=== PATIENT | female | born 1960 | race American Indian/Alaskan Native ===

== ENCOUNTER 2017-06-26 17:29 | Emergency (ER) | payer MEDICAID, OTHER ==
[2017-06-26 17:53] VITALS: BMI 24.2
[2017-06-26 17:58] VITALS: RESP 20
--- NOTE | 2017-06-26 18:32 | C.PDOC ---
History Of Present Illness 57F hx of SS anemia c/o pain in her left upper chest rad around to side of chest and behind shoulder for the last "two to four hours." worse w deep breathing. she has not had this pain before and says it feels different than sickle cell pain. she denies any cough or fever. no dvt/pe risk factors. Time Seen by Provider: 06/26/17 18:22 Chief Complaint (Nursing): Chest Pain Past Medical History Vital Signs: Last Vital Signs Temp 97.4 F L 06/26/17 17:52 Pulse 74 06/26/17 17:52 Resp 20 06/26/17 17:52 BP 138/94 H 06/26/17 17:52 Pulse Ox 100 06/26/17 18:41 - Medical History PMH: Anemia (sickle cell), Arthritis, Asthma Family History: States: Other Other Family History: nc - Social History Hx Tobacco Use: No Hx Alcohol Use: Yes Hx Substance Use: No - Immunization History Hx Tetanus Toxoid Vaccination: No (6yrs ago) Hx Influenza Vaccination: No Hx Pneumococcal Vaccination: No Review Of Systems Except As Marked, All Systems Reviewed And Found Negative. Constitutional: Negative for: Fever, Chills, Weakness Eyes: Negative for: Vision Change Cardiovascular: Positive for: Chest Pain. Negative for: Edema Respiratory: Negative for: Cough, Shortness of Breath, Hemoptysis, Sputum Gastrointestinal: Negative for: Nausea, Vomiting, Abdominal Pain Musculoskeletal: Positive for: Shoulder Pain Neurological: Negative for: Weakness, Numbness, Headache Physical Exam - Physical Exam Appears: Well, Non-toxic, No Acute Distress Skin: Warm, Dry Head: Atraumatic Eye(s): bilateral: PERRL Nose: No Epistaxis Oral Mucosa: Moist Chest: Tenderness (left anterior inferior to clavicle, also left lateral chest wall, posterior shoulder) Cardiovascular: Rhythm Regular, No Edema Respiratory: No Decreased Breath Sounds, No Accessory Muscle Use, No Rales, No Rhonchi, No Stridor, No Wheezing Gastrointestinal/Abdominal: Soft, No Tenderness Extremity: No Calf Tenderness, No Swelling Pulses: Left Radial: Normal, Right Radial: Normal Neurological/Psych: Oriented x3, Normal Motor, Normal Sensation, Other (no focal deficits) ED Course And Treatment O2 Sat by Pulse Oximetry: 100 Disposition - Disposition Disposition Time: 19:00 Condition: STABLE Forms: Perfect [employer] (Urdu) - Clinical Impression Clinical Impression: Chest pain Physician Patient Turnover Patient Signed Over To: Stephane Quinones Handoff Comments: pending wrkup
[2017-06-26] MEDS ORDERED: Morphine 4 MG/ML VIAL ONE ×2 (18:40→21:47)
[2017-06-26 19:04] LABS: BASO % 0.9 % (0.0-2.0); EOS # 0.1 K/uL (0.0-0.7); EOS % 1.2 % (0.0-4.0); HEMOGLOBIN 14.5 g/dL (11.0-16.0); LYMPH # 1.9 K/uL (1.0-4.3); LYMPH % 40.2 % (20.0-40.0); MEAN CELL VOLUME 87.4 fL (81.0-99.0); MEAN CORPUSCULAR HGB CONC 33.2 g/dL (33.0-37.0); MEAN PLATELET VOLUME 9.3 fL (7.2-11.7); MONO # 0.2 K/uL (0.0-0.8); MONO % 4.5 % (0.0-10.0); NEUT # 2.5 K/uL (1.8-7.0); NEUT % 53.2 % (50.0-75.0); NRBC % 0.1 % (0.0-2.0); RED CELL DISTRIBUTION WIDTH 13.8 % (11.5-14.5); WHITE BLOOD COUNT 4.7 K/uL (4.8-10.8)
[2017-06-26 19:12] LABS: ALB/GLOB RATIO 1.3 (1.0-2.1); ALBUMIN 4.4 g/dL (3.5-5.0); ALT/SGPT 23 U/L (9-52); AST/SGOT 19 U/L (14-36); BLOOD UREA NITROGEN 12 mg/dL (7-17); CALCIUM 9.6 mg/dl (8.6-10.4); GFR AFRICAN-AMERICAN > 60; GFR NON-AFRICAN AMERICAN > 60
[2017-06-26 20:00] LABS: SQUAMOUS EPITHIAL 11 /hpf (0-5); URINE BACTERIA RARE (<OCC); URINE BILIRUBIN NEGATIVE (NEGATIVE); URINE BLOOD NEGATIVE (NEGATIVE); URINE CLARITY Hazy (Clear); URINE COLOR Yellow (YELLOW); URINE GLUCOSE (UA) NORMAL (Normal); URINE LEUKOCYTE ESTERASE TRACE Leu/uL (Negative); URINE NITRATE NEGATIVE (NEGATIVE); URINE PROTEIN NEGATIVE (NEGATIVE); URINE UROBILINOGEN NORMAL mg/dL (0.2-1.0)
[2017-06-26] MEDS ORDERED: Iodixanol 320 MG/ML 100 ML BOTTLE IV ONE (20:12)
[2017-06-26 22:45] VITALS: O2SAT 98
[2017-06-26 23:11] VITALS: BP 129/77; PULSE 68; TEMP 97.8
--- NOTE | 2017-06-27 08:16 | RAD ---
HISTORY: cp COMPARISON: Portable chest 11/25/2012. TECHNIQUE: Chest PA and lateral FINDINGS: LUNGS: No active pulmonary disease. Increased inspiratory volume noted. PLEURA: No significant pleural effusion identified. No pneumothorax apparent. CARDIOVASCULAR: Normal. OSSEOUS STRUCTURES: No significant abnormalities. VISUALIZED UPPER ABDOMEN: Limited left hemidiaphragm elevation again evident. OTHER FINDINGS: None. IMPRESSION: No acute cardiopulmonary disease appreciated.Increase history volume noted.
--- NOTE | 2017-06-27 09:47 | CT ---
CT dissection protocol Indication: cp radiating to back Technique: Contiguous axial images of the chest, abdomen, and pelvis. Coronal and Sagittal reformats generated and reviewed. This CT exam was performed using 1 or more of the following dose reduction techniques: Automated exposure control, adjustment of the MAA and/or kV according to patient size, and/or use of iterative reconstruction technique. Oral contrast was not administered. 100 mL Visipaque IV. Radiation dose: Total exam DLP = 578.62 MGy-cm. Comparison: Chest x-ray performed 06/26/17 Findings: Visualized portions of the inferior thyroid gland appear unremarkable. The mediastinal and hilar vascular structures appear within normal limits. The heart appears within normal limits of size. Sub cm prevascular lymph nodes, nonspecific. No large central or segmental pulmonary embolus evident. The thoracic and abdominal aorta appear unremarkable without evidence of aneurysmal dilatation or dissection. No focal consolidation. No pleural effusion. No pneumothorax. No suspicious pulmonary nodules measuring greater than 5 mm. 7 mm nodular density in the right breast of unclear significance. Recommend correlation with dedicated breast imaging. Small hiatal hernia/distal esophageal wall thickening. Nonobstructing 2 mm left lower pole renal calculus. 2.8 cm hypodense left renal lesion consistent with a cyst. The liver, spleen, kidneys, pancreas, adrenal glands, and gallbladder appear otherwise unremarkable. There is normal course and contour of the abdominal aorta and common iliac arteries. The celiac artery origin is widely patent. The superior mesenteric artery origin is widely patent. The inferior mesenteric artery origin is patent. Bilateral renal arteries identified, both widely patent. The stomach is nondistended. The bowel loops appear within normal limits of caliber without evidence of intestinal obstruction. There is no definite free air. No acute intracranial pathology identified. Impression: No acute findings. 7 mm nodular density in the right breast of unclear significance. Recommend correlation with dedicated breast imaging. Additional findings as above. Preliminary impression was provided by virtual radiologic. Study marked for PA review.
--- NOTE | 2017-06-27 11:08 | CARD ---
APPROVED REPORT EKG Measurement Heart [id number] <Conclusion> Normal sinus rhythm Incomplete right bundle branch block Minimal voltage criteria for LVH, may be normal variant Borderline ECG
== END 2017-06-26 23:11 | disposition home or self-care (01) ==
LOC: C.ER 17:29
DX: R07.9 Chest pain, unspecified (principal); D57.1 Sickle-cell disease without crisis
CPT/HCPCS: 71046; 71275; 74175; 80053; 81001; 84484; 85025; 85044; 85378; 93005; 96374; 96376; 99285; J2270; Q9967

== ENCOUNTER 2017-10-25 22:06 | Emergency (ER) | payer MEDICAID ==
[2017-10-25 22:06] VITALS: BMI 24.2
[2017-10-25 22:59] LABS: BASO # 0.1 K/uL (0.0-0.2); BASO % 0.9 % (0.0-2.0); EOS # 0.1 K/uL (0.0-0.7); EOS % 1.4 % (0.0-4.0); HEMOGLOBIN 15.7 g/dL (11.0-16.0); LYMPH # 2.6 K/uL (1.0-4.3); LYMPH % 48.9 % (20.0-40.0); MEAN CELL VOLUME 87.9 fL (81.0-99.0); MEAN CORPUSCULAR HEMOGLOBIN 29.9 pg (27.0-31.0); MEAN PLATELET VOLUME 9.5 fL (7.2-11.7); MONO # 0.3 K/uL (0.0-0.8); MONO % 6.1 % (0.0-10.0); NEUT # 2.3 K/uL (1.8-7.0); NEUT % 42.7 % (50.0-75.0); NRBC % 0.1 % (0.0-2.0); RBC 5.25 Mil/uL (3.80-5.20); RED CELL DISTRIBUTION WIDTH 14.1 % (11.5-14.5); WHITE BLOOD COUNT 5.4 K/uL (4.8-10.8)
[2017-10-25 23:06] LABS: PROTHROMBIN TIME 10.4 SECONDS (9.7-12.2)
[2017-10-25 23:10] LABS: ALB/GLOB RATIO 1.3 (1.0-2.1); ALBUMIN 4.6 g/dL (3.5-5.0); ALT/SGPT 17 U/L (9-52); AST/SGOT 27 U/L (14-36); BLOOD UREA NITROGEN 10 mg/dL (7-17); CALCIUM 9.9 mg/dl (8.6-10.4); GFR AFRICAN-AMERICAN > 60; GFR NON-AFRICAN AMERICAN > 60; LIPASE 81 U/L (23-300)
--- NOTE | 2017-10-25 23:12 | C.PDOC ---
History Of Present Illness <Stephane Quinones - Last Filed: 10/25/17 23:09> <Ari Elizalde - Last Filed: 10/26/17 02:34> 57 year old female with PMHx of sickle cell disease presents to the ED c/o abdominal pain, CP that started yesterday. Patient reports that her pain is mostly located in her epigastric region radiating to her chest associated with nausea and vomiting. Patient denies fever, chills, diarrhea, recent travel, SOB , rash. (Stephane Quinones) History Per: Patient History/Exam Limitations: no limitations Onset/Duration Of Symptoms: Days Current Symptoms Are (Timing): Still Present Location Of Pain/Discomfort: Epigastric Radiation Of Pain To:: Chest Quality Of Discomfort: "Pain" Associated Symptoms: Nausea, Vomiting Exacerbating Factors: None Alleviating Factors: None Recent travel outside of the [place]: No Additional History Per: Patient Abnormal Vaginal Bleeding: No <Stephane Quinones - Last Filed: 10/25/17 23:09> <Ari Elizalde - Last Filed: 10/26/17 02:34> Time Seen by Provider: 10/25/17 22:45 Chief Complaint (Nursing): Abdominal Pain Past Medical History Reviewed: Historical Data, Nursing Documentation, Vital Signs - Medical History PMH: Anemia, Arthritis, Asthma, Sickle Cell Disease Surgical History: No Surg Hx Family History: States: Unknown Family Hx - Social History Hx Tobacco Use: No Hx Alcohol Use: Yes Hx Substance Use: No - Immunization History Hx Tetanus Toxoid Vaccination: No (6yrs ago) Hx Influenza Vaccination: No Hx Pneumococcal Vaccination: No <Stephane Quinones - Last Filed: 10/25/17 23:09> Vital Signs: Last Vital Signs Temp 99.0 F 10/26/17 00:43 Pulse 63 10/26/17 00:43 Resp 18 10/26/17 00:43 BP 136/81 10/26/17 00:43 Pulse Ox 97 10/26/17 00:43 Review Of Systems Constitutional: Negative for: Fever, Chills Cardiovascular: Positive for: Chest Pain Respiratory: Negative for: Cough, Shortness of Breath Gastrointestinal: Positive for: Nausea, Vomiting, Abdominal Pain Musculoskeletal: Negative for: Back Pain Skin: Negative for: Rash <Stephane Quinones - Last Filed: 10/25/17 23:09> Physical Exam - Physical Exam Appears: Non-toxic, No Acute Distress Skin: Normal Color, Warm, Dry Head: Atraumatic, Normacephalic Eye(s): bilateral: Normal Inspection Nose: No Discharge Oral Mucosa: Moist Neck: Normal ROM, Supple Chest: Symmetrical Cardiovascular: Rhythm Regular, No Murmur Respiratory: Normal Breath Sounds, No Rales, No Rhonchi, No Wheezing Gastrointestinal/Abdominal: Soft, Tenderness (epigastric), No Guarding, No Rebound Extremity: Normal ROM, No Tenderness, No Swelling Neurological/Psych: Oriented x3, Normal Speech Gait: Steady <Stephane Quinones - Last Filed: 10/25/17 23:09> ED Course And Treatment - Laboratory Results Result Diagrams: 10/25/17 22:55 ECG: Interpreted By Me, Viewed By Me ECG Rhythm: Sinus Rhythm ECG Interpretation: Normal, No Acute Changes (ST/T ) Rate From EC (BPM) O2 Sat by Pulse Oximetry: 100 (ON RA) Pulse Ox Interpretation: Normal <Stephane Quinones - Last Filed: 10/25/17 23:09> - Laboratory Results Result Diagrams: 10/25/17 22:55 10/25/17 22:55 Pulse Ox Interpretation: Normal Reevaluation Time: 02:33 Reassessment Condition: Improved <Reanna Elizaldedi - Last Filed: 10/26/17 02:34> Medical Decision Making <Stephane Quinones - Last Filed: 10/25/17 23:09> <FideValdi - Last Filed: 10/26/17 02:34> Medical Decision Making: Plan: * EKG * Labs * Protonix 40 mg IVP * Zofran 4 mg IVP * UA (Raswaraymond,Stephane) Disposition <Stephane Quinones - Last Filed: 10/25/17 23:09> Counseled Patient/Family Regarding: Studies Performed, Diagnosis, Need For Followup, Rx Given - Disposition Disposition Time: 01:00 <Reanna Elizaldedi - Last Filed: 10/26/17 02:34> - Disposition Referrals: Leyda Huynh MD [Staff Provider] - Disposition: HOME/ ROUTINE Condition: FAIR Additional Instructions: Please return if symptoms recur Prescriptions: Pantoprazole Sodium [Protonix] 40 mg PO DAILY #15 ect Instructions: Gastritis (DC) Forms: [employer] (Kazakh) - Clinical Impression Clinical Impression: Abdominal pain, Gastritis - Scribe Statement The provider has reviewed the documentation as recorded by the Scribe <Stephane Quinones - Last Filed: 10/25/17 23:09> <Ari Elizalde - Last Filed: 10/26/17 02:34> - Scribe Statement Mikie Villar All medical record entries made by the Scribe were at my direction and personally dictated by me. I have reviewed the chart and agree that the record accurately reflects my personal performance of the history, physical exam, medical decision making, and the department course for this patient. I have also personally directed, reviewed, and agree with the discharge instructions and disposition. (Stephane Quinones)
[2017-10-26 00:22] LABS: HCG,QUALITATIVE URINE NEGATIVE (NEGATIVE)
[2017-10-26 00:25] LABS: SQUAMOUS EPITHIAL 4 /hpf (0-5); URINE BILIRUBIN NEGATIVE (NEGATIVE); URINE BLOOD NEGATIVE (NEGATIVE); URINE CLARITY Clear (Clear); URINE COLOR Yellow (YELLOW); URINE GLUCOSE (UA) NORMAL (Normal); URINE LEUKOCYTE ESTERASE NEG Leu/uL (Negative); URINE PROTEIN NEGATIVE (NEGATIVE); URINE UROBILINOGEN NORMAL mg/dL (0.2-1.0)
[2017-10-26] MEDS ORDERED: Iodixanol 320 MG/ML 100 ML BOTTLE IV ONE (00:30)
[2017-10-26 00:44] VITALS: TEMP 99
--- NOTE | 2017-10-26 02:18 | CT ---
EXAM: CT Abdomen and Pelvis With Intravenous Contrast EXAM DATE/TIME: 10/25/2017 11:50 PM CLINICAL HISTORY: 57 years old, female; Pain; Abdominal pain; Epigastric; Prior surgery; Surgery date: 6+ months; Surgery type: Hysterectomy; Additional info: Upper abd pain TECHNIQUE: Axial computed tomography images of the abdomen and pelvis with intravenous contrast. All CT scans at this facility use one or more dose reduction techniques, viz.: automated exposure control; ma/kV adjustment per patient size (including targeted exams where dose is matched to indication; i.e. head); or iterative reconstruction technique. Coronal and sagittal reformatted images were created and reviewed. CONTRAST: 100 mL of visi administered intravenously. COMPARISON: No relevant prior studies available. FINDINGS: Questionable trace prominence of the intrahepatic biliary ducts. Correlation with laboratory values if indicated. The spleen is normal. The pancreas is normal. No gallstones. No hydronephrosis or perinephric stranding. There is a 2 cm left renal cyst. The bowel appears normal. A normal appendix is identified images 109 through 114 coronal images 41 through 48. IMPRESSION: Questionable trace prominence of the intrahepatic biliary ducts. Correlation with laboratory values if indicated.
[2017-10-26 02:42] VITALS: BP 149/78; PULSE 80; RESP 14; O2SAT 99
--- NOTE | 2017-10-26 10:25 | RAD ---
PROCEDURE: CHEST RADIOGRAPH, 1 VIEW HISTORY: chest pain COMPARISON: Comparison is made with 06/26/2017 FINDINGS: LUNGS: No evidence of new infiltrate or consolidation in the lungs. PLEURA: No pneumothorax or pleural fluid seen. CARDIOVASCULAR: Normal. OSSEOUS STRUCTURES: No significant abnormalities. VISUALIZED UPPER ABDOMEN: Normal. OTHER FINDINGS: None. IMPRESSION: No active disease.
== END 2017-10-26 02:43 | disposition home or self-care (01) ==
LOC: C.ER 22:06
DX: K29.70 Gastritis, unspecified, without bleeding (principal); R10.13 Epigastric pain
CPT/HCPCS: 71045; 74177; 80053; 81001; 83690; 84484; 84703; 85025; 85610; 85730; 96374; 96375; 99285; C9113; J1885; Q9967

== ENCOUNTER 2017-10-31 16:59 | Emergency (ER) | payer MEDICAID ==
[2017-10-31 16:59] VITALS: BMI 24.2
--- NOTE | 2017-10-31 17:56 | C.PDOC ---
History Of Present Illness 57 year old female, whose PMHx includes left knee arthritis, presents to the ED for evaluation of left knee swelling which gradually developed over the past 3 days. Patient states symptoms are associated with a sensation of tightness and are worse with ambulation. She admits the swelling was much worse yesterday and slightly improved today. She denies recent trauma/injury, upper/lower extremity deformity, or sensorivascular deficits. Time Seen by Provider: 10/31/17 17:10 Chief Complaint (Nursing): Lower Extremity Problem/Injury History Per: Patient History/Exam Limitations: no limitations Onset/Duration Of Symptoms: Days (3), Gradual Current Symptoms Are (Timing): Still Present Additional History Per: Patient - Ankle/Foot Description Of Injury: denies: Fell, Struck With Object, Struck Against Object, Twisted Past Medical History Reviewed: Historical Data, Nursing Documentation, Vital Signs Vital Signs: Last Vital Signs Temp 98.7 F 10/31/17 18:11 Pulse 114 H 10/31/17 18:11 Resp 20 10/31/17 18:11 BP 162/97 H 10/31/17 18:11 Pulse Ox 100 10/31/17 18:32 - Medical History PMH: Anemia, Arthritis, Asthma, Sickle Cell Disease Surgical History: No Surg Hx Family History: States: Unknown Family Hx - Social History Hx Tobacco Use: No Hx Alcohol Use: Yes Hx Substance Use: No - Immunization History Hx Tetanus Toxoid Vaccination: No (6yrs ago) Hx Influenza Vaccination: No Hx Pneumococcal Vaccination: No Review Of Systems Musculoskeletal: Positive for: Other (left knee pain ) Neurological: Negative for: Weakness, Numbness Physical Exam - Physical Exam Appears: Non-toxic, No Acute Distress Skin: Warm, Dry, No Rash Head: Normacephalic Eye(s): bilateral: PERRL Ear(s): Bilateral: Normal Nose: No Flaring, No Discharge Oral Mucosa: Moist Neck: Trachea Midline, Supple Cardiovascular: Rhythm Regular Respiratory: No Decreased Breath Sounds, No Accessory Muscle Use, No Rales, No Rhonchi, No Wheezing Extremity: Tenderness (moderate, left suprapatellar), Capillary Refill (less than 2 seconds ), No Deformity, Swelling (moderate, left suprapatellar) Neurological/Psych: Oriented x3, Normal Speech Gait: Steady ED Course And Treatment O2 Sat by Pulse Oximetry: 100 (on RA) Pulse Ox Interpretation: Normal - Other Rad Left knee X-Ray: Interpreted by Me, Viewed By Me Interpretation: superior prepatellar effusion, mild DJD, no acute fx Progress Note: Left knee XR ordered and reviewed. Ultram PO and Prednisone PO administered. On re-evaluation, pt is afebrile, hemodynamicaly stable. Non- toxic. Ambulatory in ED with stable gait. LLE: mild superior/medial patellar edema and tenderness, NO defomrity. FAROM, no neurovascular deficits. Neurologicaly intact. Imagings review (+) mod DJD, no acute fx or dislocation. Sesar wrap applied to Left knee. Pt advised on course of ds. ref. to f/u with PMD, Ortho in 2-3 days for re-eval. Return to ED if any worsening or new chanegs. Disposition Counseled Patient/Family Regarding: Studies Performed, Diagnosis, Need For Followup, Rx Given - Disposition Referrals: Mary Grace Huynh MD [Medical Doctor] - Disposition: HOME/ ROUTINE Disposition Time: 17:53 Condition: STABLE Additional Instructions: Sesar wrap to Left knee for 1-2 week RICE_REST, ICE, COMPRESSION,ELEVATION Take medication as prescribed Follow up with PMD and Orthopedist in 2-3 days for re-evaluation. return to ED if any worsening or new changes. Prescriptions: Prednisone [Deltasone] 40 mg PO DAILY #6 tablet traMADol [Ultram] 50 mg PO TID #7 tab Instructions: Knee Pain (DC) Forms: [employer] (Armenian) - Clinical Impression Clinical Impression: Knee effusion, left, Arthralgia of knee - PA / PV DESIGN AND INSTALLATION TECHNICIAN / Resident Statement MD/DO has reviewed & agrees with the documentation as recorded. - Scribe Statement The provider has reviewed the documentation as recorded by the Scribe (Irena Kelly) All medical record entries made by the Scribe were at my direction and personally dictated by me. I have reviewed the chart and agree that the record accurately reflects my personal performance of the history, physical exam, medical decision making, and the department course for this patient. I have also personally directed, reviewed, and agree with the discharge instructions and disposition.
[2017-10-31 18:12] VITALS: BP 162/97; PULSE 114; RESP 20; TEMP 98.7
[2017-10-31 18:19] VITALS: O2SAT 100
--- NOTE | 2017-10-31 18:41 | RAD ---
PROCEDURE: Left Knee Radiographs. HISTORY: Pain. COMPARISON: None. FINDINGS: BONES: Bone alignment and mineralization are normal. There is no acute displaced fracture or bone destruction. JOINTS: There is mild tricompartmental degenerative osteoarthrosis, worse in the medial compartment with reduced joint spaces, marginal osteophytes and tibial spiking. JOINT EFFUSION: There is a small suprapatellar joint effusion. OTHER FINDINGS: There is mild suprapatellar soft tissue swelling. IMPRESSION: No acute fracture or dislocation. Mild degenerative osteoarthrosis, worse in the medial compartment. Small suprapatellar joint effusion.
== END 2017-10-31 18:19 | disposition home or self-care (01) ==
LOC: C.ER 16:59
DX: M25.462 Effusion, left knee (principal); M25.562 Pain in left knee

== ENCOUNTER 2018-07-27 21:20 | Emergency (ER) | payer SELFPAY ==
[2018-07-27 21:20] VITALS: BMI 24.2
[2018-07-27] MEDS ORDERED: Sodium Chloride 0.9% 1,000 ML IV ONE (22:35)
[2018-07-27] MEDS ORDERED: Morphine 4 MG/ML VIAL ONE (22:52)
[2018-07-27 22:54] LABS: BASO % 0.8 % (0.0-2.0); EOS # 0.1 K/uL (0.0-0.7); EOS % 2.6 % (0.0-4.0); HEMOGLOBIN 14.5 g/dL (11.0-16.0); LYMPH # 2.3 K/uL (1.0-4.3); LYMPH % 49.3 % (20.0-40.0); MEAN CELL VOLUME 87.9 fL (81.0-99.0); MEAN CORPUSCULAR HEMOGLOBIN 28.8 pg (27.0-31.0); MEAN CORPUSCULAR HGB CONC 32.7 g/dL (33.0-37.0); MONO # 0.2 K/uL (0.0-0.8); NEUT # 1.9 K/uL (1.8-7.0); NEUT % 42.3 % (50.0-75.0); NRBC % 0.1 % (0.0-2.0); RBC 5.02 Mil/uL (3.80-5.20); RED CELL DISTRIBUTION WIDTH 13.3 % (11.5-14.5); WHITE BLOOD COUNT 4.6 K/uL (4.8-10.8)
[2018-07-27 23:06] LABS: BLOOD UREA NITROGEN 9 mg/dL (7-17); CALCIUM 9.4 mg/dl (8.6-10.4); GFR NON-AFRICAN AMERICAN > 60
--- NOTE | 2018-07-27 23:06 | C.PDOC ---
History Of Present Illness 58 year old female presents with SOB, upper abdominal pain, and left upper back pain for the past 3 days. Patient has Hx of sickle cell and is concerned the pain may be related to a crisis. She has been taking tylenol at home for the pain with no relief. She saw Dr. Huynh who advised her to come in to the ER. Denies fever, vomiting, nausea, chest pain, cough, diarrhea, or other pain. Time Seen by Provider: 07/27/18 21:59 Chief Complaint (Nursing): Shortness Of Breath History Per: Patient History/Exam Limitations: no limitations Onset/Duration Of Symptoms: Days Current Symptoms Are (Timing): Still Present Associated Symptoms: Other ((+) Upper abdominal pain, left upper back pain, SOB. (-) Chest pain, fever, nausea, vomiting, cough, diarrhea.) Recent travel outside of the [place]: No Past Medical History Reviewed: Historical Data, Nursing Documentation, Vital Signs Vital Signs: Last Vital Signs Temp 97.8 F 07/27/18 21:28 Pulse 82 07/27/18 21:28 Resp 16 07/27/18 21:47 BP 134/94 H 07/27/18 21:28 Pulse Ox 100 07/27/18 21:47 - Medical History PMH: Anemia, Arthritis, Asthma, Sickle Cell Disease Family History: States: Unknown Family Hx - Social History Hx Tobacco Use: No Hx Alcohol Use: No Hx Substance Use: No - Immunization History Hx Tetanus Toxoid Vaccination: No (6yrs ago) Hx Influenza Vaccination: No Hx Pneumococcal Vaccination: No Review Of Systems Constitutional: Negative for: Fever, Chills Cardiovascular: Negative for: Chest Pain, Palpitations Respiratory: Positive for: Shortness of Breath. Negative for: Cough Gastrointestinal: Positive for: Abdominal Pain. Negative for: Nausea, Vomiting, Diarrhea Genitourinary: Negative for: Dysuria, Hematuria Musculoskeletal: Positive for: Back Pain Skin: Negative for: Rash Neurological: Negative for: Weakness, Numbness Physical Exam - Physical Exam Appears: Non-toxic Skin: Normal Color, Warm, Dry Head: Atraumatic, Normacephalic Eye(s): bilateral: Normal Inspection Oral Mucosa: Moist Neck: Normal, Supple Chest: Symmetrical, No Tenderness Cardiovascular: Rhythm Regular Respiratory: Normal Breath Sounds, No Rales, No Rhonchi, No Wheezing Gastrointestinal/Abdominal: Soft, Tenderness (Mild upper), No Guarding, No Rebound Back: No CVA Tenderness Extremity: Normal ROM (x4) Neurological/Psych: Oriented x3, Normal Speech ED Course And Treatment - Laboratory Results Result Diagrams: 07/27/18 22:50 07/27/18 22:50 ECG: Interpreted By Me, Viewed By Me ECG Rhythm: Sinus Rhythm ECG Interpretation: Normal Interpretation Of ECG: Left axis deviation, normal intervals, no st elevation Rate From EC O2 Sat by Pulse Oximetry: 100 - Radiology CXR: Interpreted by Me, Viewed By Me CXR Interpretation: Yes: No Acute Disease Medical Decision Making Medical Decision Making: Patient given 1L NS bolus and morphine ivp for pain. Labs done. Hgb and reticulocyte count normal. CXR done as well and was clear. Results discussed with patient. She is requesting UA, states "I want to make sure I don't have an infection". Denies any urinary symptoms. Additional dose morphine ivp given for continued pain, Patient appeared comfortable throughout ED course. UA done and results discussed with patient. UA with trace leukocytes and 6 wbc but is asymptomatic with several epithelial cells in urine- however patient demanding abx, threatening "it would be a shame if I had to post about this on [facility]". She specifically requests z-pack. Informed her that azithromycin is not appropriate treatment for UTI, and suggested Bactrim or Macrobid. Patient then states "I know that, I was testing you, I will take Bactrim". Rx written for abx as well as tramadol for pain, and patient advised to follow up with Dr. Huynh. Disposition - Disposition Disposition: HOME/ ROUTINE Disposition Time: 02:06 Condition: GOOD Additional Instructions: MYCHAL HORTON, thank you for letting us take care of you today. Your provider was Delilah Asher MD and you were treated for CHEST PAIN/SOB/BACK PAIN. The emergency medical care you received today was directed at your acute symptoms. If you were prescribed any medication, please fill it and take as directed. It may take several days for your symptoms to resolve. Return to the Emergency Department if your symptoms worsen, do not improve, or if you have any other problems. Please contact your doctor or call one of the physicians/clinics you have been referred to that are listed on the Patient Visit Information form that is included in your discharge packet. Bring any paperwork you were given at discharge with you along with any medications you are taking to your follow up visit. Our treatment cannot replace ongoing medical care by a primary care provider outside of the emergency department. Thank you for allowing the [facility] team to be part of your care today. If you had an X-Ray or CT scan: A Radiologist will review the ED reading if any change in treatment is needed we will contact you. If you had a blood, urine, or wound culture: It will take several days for the results, if any change in treatment is needed we will contact you. If you had an STI test: It will take 48 hours for the results. Please call after 1 week if you have not heard back. Prescriptions: Sulfamethoxazole/Trimethoprim [Bactrim DS 800 mg-160 mg] 1 tab PO BID #10 tab traMADol [Ultram] 50 mg PO BID PRN #9 tab PRN Reason: Pain, Severe (8-10) Instructions: Shortness of Breath (Dyspnea) (DC), Sickle Cell Disease (DC) Forms: [employer] (Malagasy) - Clinical Impression Clinical Impression: Sickle cell anemia, Back pain, Asymptomatic bacteriuria - Scribe Statement The provider has reviewed the documentation as recorded by the Scribe Stevo Barry All medical record entries made by the Scribe were at my direction and personally dictated by me. I have reviewed the chart and agree that the record accurately reflects my personal performance of the history, physical exam, medical decision making, and the department course for this patient. I have also personally directed, reviewed, and agree with the discharge instructions and disposition.
[2018-07-28] MEDS ORDERED: Morphine 4 MG/ML VIAL ONE (01:02)
[2018-07-28 01:06] LABS: SQUAMOUS EPITHIAL 4 /hpf (0-5); URINE BILIRUBIN NEGATIVE (NEGATIVE); URINE BLOOD NEGATIVE (NEGATIVE); URINE CLARITY Clear (Clear); URINE COLOR Yellow (YELLOW); URINE GLUCOSE (UA) NORMAL (Normal); URINE HYALINE CAST 0-2 /lpf (0-2); URINE LEUKOCYTE ESTERASE TRACE Leu/uL (Negative); URINE PROTEIN NEGATIVE (NEGATIVE)
[2018-07-28 02:21] VITALS: BP 151/87; PULSE 56; RESP 18; TEMP 98.4
[2018-07-28 04:56] VITALS: O2SAT 100
--- NOTE | 2018-07-28 07:29 | RAD ---
HISTORY: dyspnea COMPARISON: Chest x-ray performed 10/25/17 TECHNIQUE: Chest, one view. FINDINGS: LUNGS: No focal consolidation. Numerous subtle nodular opacities throughout bilateral lung duron of unclear significance. Please note that chest x-ray has limited sensitivity for the detection of pulmonary masses. PLEURA: No significant pleural effusion identified. No definite pneumothorax . CARDIOVASCULAR: Borderline cardiomegaly. Atherosclerotic calcifications of the aorta. OSSEOUS STRUCTURES: No acute osseous abnormality identified. VISUALIZED UPPER ABDOMEN: Unremarkable. OTHER FINDINGS: None. IMPRESSION: Numerous subtle nodular opacities throughout bilateral lung duron of uncertain significance. Recommend further evaluation with outpatient chest CT. Study marked for PA review.
--- NOTE | 2018-07-28 20:17 | CARD ---
APPROVED REPORT Date of service: 07/27/2018 EKG Measurement Heart [id number] <Conclusion> Normal sinus rhythm Left axis deviation Minimal voltage criteria for LVH, may be normal variant Abnormal ECG
== END 2018-07-28 02:15 | disposition home or self-care (01) ==
LOC: C.ER 21:20
DX: M54.6 Pain in thoracic spine (principal); R82.71 Bacteriuria; D57.1 Sickle-cell disease without crisis
CPT/HCPCS: 71045; 80048; 81001; 85025; 85044; 93005; 96374; 99285; J2270; J7030